=== PATIENT | female | born 1990 | race Hispanic/Latino ===

== ENCOUNTER → 2023-08-27 11:25 | Outpatient (REF) | payer OTHER, SELFPAY | LOC: RAD 11:25 | PROVIDERS: ATTENDING PHYSICIAN Nurse Practitioner Family | DX: O26.851 Spotting complicating pregnancy, first trimester (principal) | CPT/HCPCS: 76801 ==

== ENCOUNTER → 2023-11-19 10:50 | Outpatient (REF) | payer OTHER, SELFPAY | LOC: PNTC 10:50 | PROVIDERS: ATTENDING PHYSICIAN Obstetrics & Gynecology; PRIMARYCARE PHYSICIAN Internal Medicine Geriatric Medicine | DX: O09.529 Supervision of elderly multigravida, unspecified trimester (principal); O10.019 Pre-existing essential hypertension complicating pregnancy, unspecified trimester; O99.210 Obesity complicating pregnancy, unspecified trimester; O34.218 Maternal care for other type scar from previous cesarean delivery; O10.119 Pre-existing hypertensive heart disease complicating pregnancy, unspecified trimester; O09.30 Supervision of pregnancy with insufficient antenatal care, unspecified trimester | CPT/HCPCS: 76811 ==